=== PATIENT | male | born 1990 | race African-American/Black ===

== ENCOUNTER 2019-05-07 19:58 | Emergency (ER) | payer OTHER ==
[~2019-05-07] VITALS: Ht 165.1 cm; Wt 66.4 kg
[2019-05-07] MEDS ORDERED: IBUPROFEN 600 MG TAB PO ONE (21:45)
[2019-05-07 21:53] VITALS: BP 136/85
== END 2019-05-07 21:53 | disposition home or self-care (01) ==
LOC: M ED 19:58
DX: T33.829A Superficial frostbite of unspecified foot, initial encounter (principal); X58.XXXA Exposure to other specified factors, initial encounter; Y92.89 Other specified places as the place of occurrence of the external cause

== ENCOUNTER 2020-05-04 09:55 | Emergency (ER) | payer OTHER ==
[~2020-05-04] VITALS: Ht 165.1 cm; Wt 75.4 kg
[2020-05-04] MEDS ORDERED: GI COCKTAIL 50ML BTL(HYOSCYAMINE/MAALOX/LIDOCAINE VISCOUS)(1:3:1) PO ONE (10:30)
[2020-05-04] MEDS ORDERED: NS 1,000 ML IV ONE (10:30)
[2020-05-04] MEDS ORDERED: KETOROLAC 30 MG/ML 1ML VIAL IV ONE (10:30)
[2020-05-04 10:52] LABS: EOS # 0.2 10^3/uL (0.0-0.5); EOS % 4.9 % (0.0-3.0); HEMATOCRIT 49.3 % (42.0-52.0); HEMOGLOBIN 16.3 g/dl (13.5-17.5); LYMPH # 1.5 10^3/uL (1.5-5.0); LYMPH % 38.9 % (24.0-44.0); MEAN CORPUSCULAR HEMOGLOBIN 27.9 pg (27.0-33.0); MEAN CORPUSCULAR HGB CONC 33.1 g/dl (32.0-36.5); MEAN CORPUSCULAR VOLUME 84.4 fl (80.0-96.0); MONO # 0.5 10^3/uL (0.0-0.8); MONO % 13.2 % (0.0-5.0); NEUTROPHILS # 1.6 10^3/uL (1.5-8.5); NEUTROPHILS % 41.7 % (36.0-66.0); PLATELET COUNT, AUTOMATED 139 10^3/uL (150-450); RED BLOOD COUNT 5.84 10^6/uL (4.30-6.10); WHITE BLOOD COUNT 3.9 10^3/uL (4.0-10.0)
[2020-05-04 11:15] LABS: ALBUMIN 4.3 GM/DL (3.2-5.2); ALT/SGPT 41 U/L (12-78); BILIRUBIN,DIRECT < 0.1 MG/DL (0.0-0.2); BILIRUBIN,TOTAL 0.5 MG/DL (0.2-1.0); BLOOD UREA NITROGEN 8 MG/DL (7-18); CALCIUM LEVEL 9.4 MG/DL (8.5-10.1); CARBON DIOXIDE LEVEL 31 MEQ/L (21-32); CHLORIDE LEVEL 104 MEQ/L (98-107); CREATININE FOR GFR 1.09 MG/DL (0.70-1.30); GLOMERULAR FILTRATION RATE > 60.0 (>60); GLUCOSE, FASTING 97 MG/DL (70-100); LIPASE 191 U/L (73-393); POTASSIUM SERUM 4.4 MEQ/L (3.5-5.1); SODIUM LEVEL 140 MEQ/L (136-145); TOTAL PROTEIN 8.3 GM/DL (6.4-8.2)
[2020-05-04 12:40] VITALS: BP 119/71
[2020-05-05 11:34] LABS: VITAMIN B12 LEVEL 330 PG/ML (247-911)
[2020-05-05 11:35] LABS: FOLATE 14.7 NG/ML (>5.4)
[2020-05-05 11:45] LABS: HEPATITIS B SURFACE ANTIGEN NEGATIVE (NEGATIVE)
[2020-05-05 12:11] LABS: HEPATITIS B CORE ANTIBODY IGM NEGATIVE (NEGATIVE); HEPATITIS C VIRUS ABY INDEX < 0.0 INDEX (<0.8)
[2020-05-05 12:13] LABS: HIV 1&2 SCREEN CENTAUR NEGATIVE (NEGATIVE)
[2020-05-05 12:14] LABS: HEPATITIS A ANTIBODY IGM NEGATIVE (NEGATIVE)
== END 2020-05-04 12:43 | disposition home or self-care (01) ==
LOC: M ED 09:55
DX: R51.9 Headache, unspecified (principal); D69.6 Thrombocytopenia, unspecified; R12 Heartburn
CPT/HCPCS: 80048; 80076; 82607; 82746; 83690; 85025; 86705; 86709; 86803; 87340; 87389; 96361; 96374; 99284; J1885

== ENCOUNTER 2020-12-06 07:40 | Emergency (ER) | payer OTHER ==
[~2020-12-06] VITALS: Ht 165.1 cm; Wt 75.9 kg
[2020-12-06] MEDS ORDERED: GI COCKTAIL 50ML BTL(HYOSCYAMINE/MAALOX/LIDOCAINE VISCOUS)(1:3:1) PO ONE (07:55)
[2020-12-06 08:16] LABS: HEMATOCRIT 46.5 % (42.0-52.0); HEMOGLOBIN 15.8 g/dl (13.5-17.5); MEAN CORPUSCULAR HEMOGLOBIN 28.3 pg (27.0-33.0); MEAN CORPUSCULAR VOLUME 83.3 fl (80.0-96.0); PLATELET COUNT, AUTOMATED 153 10^3/uL (150-450); RED BLOOD COUNT 5.58 10^6/uL (4.30-6.10); WHITE BLOOD COUNT 4.8 10^3/uL (4.0-10.0)
[2020-12-06 08:39] LABS: ALBUMIN 4.1 GM/DL (3.2-5.2); ALT/SGPT 32 U/L (12-78); BILIRUBIN,DIRECT 0.2 MG/DL (0.0-0.2); BILIRUBIN,TOTAL 0.6 MG/DL (0.2-1.0); BLOOD UREA NITROGEN 13 MG/DL (7-18); CALCIUM LEVEL 9.2 MG/DL (8.5-10.1); CARBON DIOXIDE LEVEL 28 MEQ/L (21-32); CHLORIDE LEVEL 105 MEQ/L (98-107); CREATININE FOR GFR 1.42 MG/DL (0.70-1.30); GLOMERULAR FILTRATION RATE > 60.0 (>60); GLUCOSE, FASTING 89 MG/DL (70-100); LIPASE 211 U/L (73-393); POTASSIUM SERUM 4.2 MEQ/L (3.5-5.1); SODIUM LEVEL 137 MEQ/L (136-145)
[2020-12-06 08:42] LABS: ATYPICAL LYMPH 5 % (0-5); BASOPHILS 2 % (0-1); LYMPHOCYTES 32 % (16-44); MONOCYTES 10 % (0-5); NEUTROPHILS 46 % (28-66)
[2020-12-06 08:43] LABS: ANISOCYTOSIS 1+; PLATELET ESTIMATE NORMAL (NORMAL)
[2020-12-06 08:44] LABS: HYPOCHROMASIA 1+; MICROCYTOSIS 1+
[2020-12-06] MEDS ORDERED: PROT1TAB2 PO (09:15)
[2020-12-06] MEDS ORDERED: CARA1TAB6 PO (09:15)
[2020-12-06 09:19] VITALS: BP 120/75
== END 2020-12-06 09:20 | disposition home or self-care (01) ==
LOC: M ED 07:40
DX: R10.13 Epigastric pain (principal)

== ENCOUNTER 2021-03-08 09:16 | Emergency (ER) | payer OTHER ==
[~2021-03-08] VITALS: Ht 165.1 cm; Wt 74.5 kg
[~2021-03-08 09:16] MED LIST: CARA1TAB6 PO; PROT1TAB2 PO
[2021-03-08 09:17] VITALS: BP 125/75
== END 2021-03-08 11:34 | disposition home or self-care (01) ==
LOC: M ED 09:16
DX: S99.911A Unspecified injury of right ankle, initial encounter (principal); Y92.9 Unspecified place or not applicable; Y93.9 Activity, unspecified; Y99.1 Military activity

== ENCOUNTER 2021-03-29 07:00 | Emergency (ER) | payer OTHER ==
[~2021-03-29] VITALS: Ht 165.1 cm; Wt 73.6 kg
--- NOTE | 2021-03-29 09:59 | REP ---
INDICATION: injury right groin r/o hernia and fluid collection COMPARISON: None. TECHNIQUE: Directed ultrasound examination using linear high-frequency transducer. FINDINGS: Limited directed ultrasound examination of the right groin demonstrates no obvious fluid collection or evidence for injury. No inguinal hernias identified. Incidental normal appearing lymph nodes measure 14 x 5 x 10 mm and 15 x 9 x 4 mm. IMPRESSION: Normal examination of the right groin. <Electronically signed by Abdi Grissom > 03/29/21 2054
[2021-03-29 10:23] VITALS: BP 116/72
== END 2021-03-29 10:34 | disposition home or self-care (01) ==
LOC: M ED 07:00
DX: S76.811A Strain of other specified muscles, fascia and tendons at thigh level, right thigh, initial encounter (principal); Y92.9 Unspecified place or not applicable; Y93.66 Activity, soccer; Y99.9 Unspecified external cause status

== ENCOUNTER 2021-05-04 13:19 | Day surgery (SDC) | payer OTHER ==
[~2021-05-04] VITALS: Ht 165.1 cm; Wt 76.4 kg
[~2021-05-04 13:19] MED LIST changes: +NS 1,000 ML IV ONE
--- OUTSIDE RECORDS SUMMARY | 2021-05-04 13:23 | CCD ---
Author Author [facility] Organization [facility] Address Unknown Phone Unavailable Care Team Providers Care Mds Manager Name Role Phone Charlebois, A Carlita RPA C Unavailable Unavailable Charlebois, A Carlita RPA C Unavailable Unavailable Charlebois, A Carlita RPA C Unavailable Unavailable Charlebois, A Carlita RPA C Unavailable Unavailable Charlebois, A Carlita RPA C Unavailable Unavailable Charlebois, A Carlita RPA C Unavailable Unavailable Charlebois, A Carlita RPA C Unavailable Unavailable Charlebois, A Carlita RPA C Unavailable Unavailable Charlebois, A Carlita RPA C Unavailable Unavailable Charlebois, A Carlita RPA C Unavailable Unavailable Charlebois, A Carlita RPA C Unavailable Unavailable Charlebois, A Carlita RPA C Unavailable Unavailable Charlebois, A Carlita RPA C Unavailable Unavailable Charlebois, A Carlita RPA C Unavailable Unavailable Charlebois, A Carlita RPA C Unavailable Unavailable Charlebois, A Carlita RPA C Unavailable Unavailable Charlebois, A Carlita RPA C Unavailable Unavailable Charlebois, A Carlita RPA C Unavailable Unavailable Charlebois, A Carlita RPA C Unavailable Unavailable Charlebois, A Carlita RPA C Unavailable Unavailable Charlebois, A Carlita RPA C Unavailable Unavailable Charlebois, A Carlita RPA C Unavailable Unavailable Charlebois, A Carlita RPA C Unavailable Unavailable Charlebois, A Carlita RPA C Unavailable Unavailable Charlebois, A Carlita RPA C Unavailable Unavailable Charlebois, A Carlita RPA C Unavailable Unavailable Charlebois, A Carlita RPA C Unavailable Unavailable Charlebois, A Carlita RPA C Unavailable Unavailable Charlebois, A Carlita RPA C Unavailable Unavailable Charlebois, A Carlita RPA C Unavailable Unavailable Charlebois, A Carlita RPA C Unavailable Unavailable Charlebois, A Carlita RPA C Unavailable Unavailable Charlebois, A Carlita RPA C Unavailable Unavailable Re-disclosure Warning The records that you are about to access may contain information from federally-assisted alcohol or drug abuse programs. If such information is present, then the following federally mandated warning applies: This information has been disclosed to you from records protected by federal confidentiality rules (42 CFR part 2). The federal rules prohibit you from making any further disclosure of this information unless further disclosure is expressly permitted by the written consent of the person to whom it pertains or as otherwise permitted by 42 CFR part 2. A general authorization for the release of medical or other information is NOT sufficient for this purpose. The Federal rules restrict any use of the information to criminally investigate or prosecute any alcohol or drug abuse patient.The records that you are about to access may contain highly sensitive health information, the redisclosure of which is protected by Article 27-F of the [facility] Public Health law. If you continue you may have access to information: Regarding HIV / AIDS; Provided by facilities licensed or operated by the [facility] Office of Mental Health; or Provided by the [facility] Office for People With Developmental Disabilities. If such information is present, then the following [facility] mandated warning applies: This information has been disclosed to you from confidential records which are protected by state law. State law prohibits you from making any further disclosure of this information without the specific written consent of the person to whom it pertains, or as otherwise permitted by law. Any unauthorized further disclosure in violation of state law may result in a fine or penitentiary sentence or both. A general authorization for the release of medical or other information is NOT sufficient authorization for further disc losure. Encounters Encounter Providers Location Date Indications Data Source(s ) Outpatient Attender: Carlita Cardona SUE Cee/[place]/Livier valente/Kaylan 02/05/2021 02:00:00 PM EDT [facility] ([facility]) Medications Medication Brand Name Start Date Product Form Dose Route Admi nistrative Instructions Pharmacy Instructions Status Indications Reaction Description Data Source(s) No Active Medications 02/05/2021 12:00:00 AM [facility]T [facility] pantoprazole 20 MG Delayed Release Oral Tablet [Protonix] Pr otonix 02/05/2021 12:00:00 AM EDT [facility] Insurance Providers Payer name Policy type / Coverage type Policy ID Covered republican ID Covered republican's relationship to lopez Policy Lopez Plan Information [facility] ACTIVE DUTY [id number] Problems, Conditions, and Diagnoses No Information Surgeries/Procedures Procedure Description Date Indications Data Source(s) OFFICE OUTPATIENT NEW 45 MINUTES 02/05/2021 12:00:00 A M [facility] Results No Information Social History No Information Vital Signs ID Date Data Source UNK Name Value Range Interpretation Code Description Data Source(s) Systolic blood pressure 112 mm[Hg] 112 mm[Hg] [facility] Diastolic blood pressure 82 mm[Hg] 82 mm[Hg] [facility] ([facility]) Body height 65 [in_i] 65 [in_i] [facility] ([facility]) 5'5" Body weight 166.00 [lb_av] 166.00 [lb_av] [facility] Body mass index (BMI) [Ratio] 27.6 kg/m2 27.6 k g/m2 [facility] ([facility]) [place] body weight 125 [lb_av] 125 [lb_av] [facility] ([facility]) Body weight 75.298 kg 75.298 kg [facility] ([facility]) Body surface area Derived from formula 1.83 m2 1.83 m2 [facility] ([facility])
--- OUTSIDE RECORDS SUMMARY | 2021-05-04 13:23 | CCD | Continuity of Care Document ---
Author Author Mehul DUTTA Organization Unknown Address [address] [place] [address], [address] [place] [address] Phone [phone] Care Team Providers Care Pool Lifeguard Name Role Phone Nilsa Dolan [phone] Problems Description No Active Problems Social History Type Date Description Comments Sex Unknown ETOH Use Denies alcohol use Tobacco Use Start: Unknown Non Smoker Allergies, Adverse Reactions, Alerts Description No Known Drug Allergies Medications Active Medications SIG Qnty Indications Ordering Provide r Date Protonix 20mg Tablets DR take one tablet by mouth daily. 30tabs K21.9 Ivan Kimbrough MD 02/05/2021 History Medications No Active Medications Unknown - 02/05/2021 Immunizations Description No Information Available Vital Signs Date Vital Result Comment 02/05/2021 2:24pm BP Systolic 112 mmHg BP Diastolic 82 mmHg Height 65 inches 5'5" Weight 166.00 lb BMI (Body Mass Index) 27.6 kg/m2 [place] Body Weight 125 lb Weight 75.298 kg BSA (Body Surface Area) 1.83 m2 Results Description No Information Available Procedures Description No Information Available Medical Devices Description No Information Available Encounters Description No Information Available Assessments Date Code Description Provider 02/05/2021 K21.9 Gastro-esophageal reflux disease without esophagitis PAUL Spencer 02/05/2021 R10.13 Epigastric pain PAUL Gant Plan of Treatment 02/05/2021 - PAUL Spencer* K21.9 Gastro-esophageal reflux disease without esophagitis * R10.13 Epigastric pain * * New Medication:* Protonix 20 mg * New Orders:* Endoscopy, Ordered: 02/05/21 * Comments:* Will arrange for upper endoscopy. Reviewed risks and benefits of the procedure, as well as other options, with the patient. Prep for this procedure was discussed with patient. Patient verbalized understanding of all of the above and is in agreement to proceed. Patient will seek medical attention for any acute changes. Will monitor. * Follow up:* As scheduled, sooner if needed. Functional Status Description No Information Available Mental Status Description No Information Available Referrals Refer to Reason for Referral Status Appt Date Serjio Wade M.D. r10.13 EPIGASTRIC PAIN Scheduled 02/05/2021 [facility] [address], [address] [place] [address] [phone]
--- OUTSIDE RECORDS SUMMARY | 2021-05-04 13:23 | CCD | Continuity of Care Document ---
Author Author Mehul DUTTA Organization Unknown Address [address] [place] [address], [address] [place] [address] Phone [phone] Care Team Providers Care Can Capper Name Role Phone Nilsa Dolan [phone] Problems Description No Active Problems Social History [...] lb BMI (Body Mass Index) 27.6 kg/m2 [place] Weight 125 lb Weight 75.298 kg BSA (Body Surface Area) 1.83 m2 Results Description No Information Available Procedures Date Code Description Status 02/05/2021 01824 Office/Outpatient New Moderate M DM 45-59 Minutes Completed Medical Devices Description No Information Available Encounters Type Date Location Provider Dx Diagnosis Office Visit 02/05/2021 2:00p [facility] PAUL Spencer K21.9 Gastro-esophageal reflux dis ease without esophagitis R10.13 Epigastric pain Assessments Date Code Description Provider 02/05/2021 K21.9 Gastro-esophageal reflux disease without esophagitis PAUL Spencer 02/05/2021 R10.13 Epigastric pain Carlita PAUL Sevilla Plan of Treatment Future Appointment(s):* 04/24/2021 2:00 am - Serjio Wade M.D. at [facility] 02/05/2021 - PAUL Spencer* K21.9 Gastro-esophageal reflux [...] Description No Information Available Referrals Refer to Dr Reason for Referral Status Appt Date Serjio Wade M.D. r10.13 EPIGASTRIC PAIN Scheduled 02/05/2021 [facility] [address], [address] [place] [address] [phone]
[2021-05-04] MEDS ORDERED: fentaNYL 100 MCG/2 ML INJECTION (J3010) As Ordered ONE (15:13)
[2021-05-04] MEDS ORDERED: LIDOCAINE 2% 100MG/5ML SDV (FOR ANES.) As Ordered ONE (15:14)
--- NOTE | 2021-05-04 15:46 | ROOR ---
Patient Name: Mehul Loya Procedure Date: 05/04/2021 3:13 PM Date of : 1990 Age: 31 Room: [facility] Gender: Male Note Status: Finalized Procedure: Upper GI endoscopy Indications: Epigastric abdominal pain, Heartburn Providers: Serjio Wade MD Referring MD: ADRIANNA MASON MD Requesting Provider: Medicines: Monitored Anesthesia Care Complications: No immediate complications. Procedure: Pre-Anesthesia Assessment: - Prior to the procedure, a History and Physical was performed, and patient medications and allergies were reviewed. The patient is competent. The risks and benefits of the procedure and the sedation options and risks were discussed with the patient. All questions were answered and informed consent was obtained. Patient identification and proposed procedure were verified by the physician, the nurse and the anesthesiologist in the procedure room. Mental Status Examination: alert and oriented. Airway Examination: normal oropharyngeal airway and neck mobility. Respiratory Examination: clear to auscultation. CV Examination: normal. Prophylactic Antibiotics: The patient does not require prophylactic antibiotics. Prior Anticoagulants: The patient has taken no previous anticoagulant or antiplatelet agents. ASA Grade Assessment: II - A patient with mild systemic disease. After reviewing the risks and benefits, the patient was deemed in satisfactory condition to undergo the procedure. The anesthesia plan was to use monitored anesthesia care (MAC). Immediately prior to administration of medications, the patient was re-assessed for adequacy to receive sedatives. The heart rate, respiratory rate, oxygen saturations, blood pressure, adequacy of pulmonary ventilation, and response to care were monitored throughout the procedure. The physical status of the patient was re-assessed after the procedure. The Endoscope was introduced through the mouth, and advanced to the second part of duodenum. The upper GI endoscopy was accomplished without difficulty. The patient tolerated the procedure well. Findings: LA Grade C (one or more mucosal breaks continuous between tops of 2 or more mucosal folds, less than 75% circumference) esophagitis with no bleeding was found in the distal esophagus. Biopsies were taken with a cold forceps for histology. Verification of patient identification for the specimen was done by the physician and nurse using the patient's name, date and medical record number. Estimated blood loss was minimal. Localized moderate mucosal changes characterized by nodularity were found in the distal esophagus. Biopsies were taken with a cold forceps for histology. Scattered mild inflammation characterized by erythema and granularity was found in the gastric antrum. Biopsies were taken with a cold forceps for Helicobacter pylori testing. The duodenal bulb, second portion of the duodenum and third portion of the duodenum were normal. Impression: - LA Grade C reflux esophagitis. Rule out Kohler's esophagus. Biopsied. - Nodular mucosa in the esophagus. Biopsied. - Gastritis. Biopsied. - Normal duodenal bulb, second portion of the duodenum and third portion of the duodenum. Recommendation: - Patient has a contact number available for emergencies. The signs and symptoms of potential delayed complications were discussed with the patient. Return to normal activities tomorrow. Written discharge instructions were provided to the patient. - High fiber diet. - Continue present medications. - Use Protonix (pantoprazole) 40 mg PO twice daily - to be taken in morning (1/2 hour before breakfast) and at bedtime ( atleast 3 hours after last meal) for 3 months. - Use sucralfate suspension 1 gram PO BID for 4 weeks. - Await pathology results. - Repeat upper endoscopy in 3 months to evaluate the response to therapy. - Telephone GI clinic for pathology results in 2 weeks. - Return to GI clinic in [facility] (address: [address] [place] [address], 1st floor, [place], [place],[address]) in 4 -- 6 weeks. Please call GI clinic @ [phone] for apppointment date and time. - Return to primary care physician. Procedure Code(s): --- Professional --- 39819, Esophagogastroduodenoscopy, flexible, transoral; with biopsy, single or multiple Diagnosis Code(s): --- Professional --- K21.0, Gastro-esophageal reflux disease with esophagitis K22.8, Other specified diseases of esophagus K29.70, Gastritis, unspecified, without bleeding R10.13, Epigastric pain R12, Heartburn CPT copyright 2019 [employer]. All rights reserved. The codes documented in this report are preliminary and upon director financial services review may be revised to meet current compliance requirements. Serjio Wade MD Serjio Wade MD 05/04/2021 3:46:07 PM Electronically signed by Serjio Wade MD Number of Addenda: 0 Note Initiated On: 05/04/2021 3:13 PM Estimated Blood Loss: Estimated blood loss was minimal.
[2021-05-04 15:47] VITALS: BP 116/75
== END 2021-05-04 15:51 | disposition home or self-care (01) ==
LOC: M OPP 13:19
PROVIDERS: ATTEND Internal Medicine Gastroenterology
DX: K21.00 Gastro-esophageal reflux disease with esophagitis, without bleeding (principal); K22.89 Other specified disease of esophagus; K29.50 Unspecified chronic gastritis without bleeding; R10.13 Epigastric pain
CPT/HCPCS: 43239; 88305; J3010

== ENCOUNTER 2021-07-09 17:30 | Emergency (ER) | payer OTHER ==
[~2021-07-09] VITALS: Ht 142.2 cm; Wt 76.7 kg
[2021-07-09 17:30] VITALS: BP 138/77
[~2021-07-09 17:30] MED LIST changes: -NS 1,000 ML IV ONE
== END 2021-07-09 18:26 | disposition left against medical advice (07) ==
LOC: M ED 17:30
DX: Z53.21 Procedure and treatment not carried out due to patient leaving prior to being seen by health care provider (principal)

== ENCOUNTER 2021-08-14 09:50 | Emergency (ER) | payer OTHER ==
[~2021-08-14] VITALS: Ht 165.1 cm; Wt 72.3 kg
[2021-08-14 12:41] VITALS: BP 118/70
== END 2021-08-14 12:55 | disposition home or self-care (01) ==
LOC: M ED 09:50
DX: T33.521A Superficial frostbite of right hand, initial encounter (principal); X31.XXXA Exposure to excessive natural cold, initial encounter; Y92.9 Unspecified place or not applicable; Y93.9 Activity, unspecified; Y99.9 Unspecified external cause status